=== PATIENT | male | born 2000 | race American Indian/Alaskan Native ===

== ENCOUNTER 2021-11-12 12:18 | Emergency (ER) | payer OTHER ==
[2021-11-12 12:47] VITALS: BP 126/81
[2021-11-12] MEDS ORDERED: MORPHINE 4 MG/1 ML INJ IV ONE (14:38)
[2021-11-12] MEDS ORDERED: SODIUM CHLORIDE 0.9% 1000 ML 1,000 ML IV ONE (14:38)
[2021-11-12] MEDS ORDERED: ONDANSETRON 4 MG/2 ML INJ IV ONE (14:38)
--- NOTE | 2021-11-12 14:41 | Emergency Department Report ---
ED Abdominal Pain HPI - General Chief Complaint: Abdominal Pain Stated Complaint: STOMACH PAIN Time Seen by Provider: 11/12/21 13:38 Source: patient Mode of arrival: Ambulatory Limitations: No Limitations - History of Present Illness Initial Comments: 21-year-old male with no significant past medical history reports to the ER with complaints of lower abdominal pain in his umbilicus area for about 2 days with nausea and vomiting with diarrhea and decrease in appetite. Patient reports he is able to drink small amounts of fluids however he is unable to eat without vomiting. Patient reports his pain is 8 out of 10. Reports taking nothing for his pain level. Patient denies any prior abdominal surgeries. Patient reports no suspicious food intake and no exposure to sick contacts and reports no one else in his household or friends with similar symptoms. Patient denies no other acute symptoms at this time. Severity scale (0 -10): 9 - Related Data Previous Rx's Medication Instructions Recorded Last Taken Type Acetaminophen/Codeine [Tylenol 1 tab PO Q6H PRN 2 Days #8 tab 11/12/21 Unknown Rx /Codeine # 3 tab] Ondansetron [Zofran Odt] 4 mg PO Q12H PRN 3 Days #6 11/12/21 Unknown Rx tab.rapdis Allergies Allergy/AdvReac Type Severity Reaction Status Date / Time No Known Allergies Allergy Unverified 11/12/21 12:47 ED Review of Systems ROS: Stated complaint: STOMACH PAIN Other details as noted in HPI Comment: All other systems reviewed and negative Gastrointestinal: abdominal pain, nausea, vomiting, diarrhea ED Past Medical Hx - Past Medical History Previous Medical History?: No - Medications Home Medications: Home Medications Medication Instructions Recorded Confirmed Last Taken Type Acetaminophen/Codeine [Tylenol 1 tab PO Q6H PRN 2 Days #8 tab 11/12/21 Unknown Rx /Codeine # 3 tab] Ondansetron [Zofran Odt] 4 mg PO Q12H PRN 3 Days #6 11/12/21 Unknown Rx tab.rapdis ED Physical Exam - General Limitations: No Limitations General appearance: alert, in no apparent distress - Head Head exam: Present: atraumatic, normocephalic - Eye Eye exam: Present: normal appearance - ENT ENT exam: Present: mucous membranes moist - Neck Neck exam: Present: normal inspection - Respiratory Respiratory exam: Present: normal lung sounds bilaterally. Absent: respiratory distress - Cardiovascular Cardiovascular Exam: Present: regular rate, normal rhythm. Absent: systolic murmur, diastolic murmur, rubs, gallop - GI/Abdominal GI/Abdominal exam: Present: soft, tenderness, guarding, normal bowel sounds. Absent: distended, rebound - Rectal Rectal exam: Present: deferred - Extremities Exam Extremities exam: Present: normal inspection - Back Exam Back exam: Present: normal inspection - Neurological Exam Neurological exam: Present: alert, oriented X3 - Psychiatric Psychiatric exam: Present: normal affect, normal mood - Skin Skin exam: Present: warm, dry, intact, normal color. Absent: rash ED Course Vital Signs 11/12/21 11/12/21 12:46 15:10 Temperature 98.6 F Pulse Rate 89 Respiratory 18 16 Rate Blood Pressure 126/81 [Left] O2 Sat by Pulse 96 Oximetry ED Medical Decision Making - Lab Data Result diagrams: 11/12/21 13:49 11/12/21 13:49 - Radiology Data [facility] [address] [place] [address] Cat Scan Report Signed Patient: MALIK VYAS MR#: [id number] : 2000 Acct:[id number] Age/Sex: 21 / M ADM Date: 11/12/21 Loc: ED Attending Dr: Ordering Physician: GAYE BARRERA NP Date of Service: 11/12/21 Procedure(s): CT abdomen pelvis w con Accession Number(s): [id number] cc: GAYE BARRERA NP CT ABDOMEN AND PELVIS WITH CONTRAST INDICATION / CLINICAL INFORMATION: lower abdominal pain 100ml of [id number]. TECHNIQUE: Axial CT images were obtained through the abdomen and pelvis after 100 cc of Omnipaque 350 IV contrast. Sagittal and coronal reformatted images. All CT scans at this location are performed using CT dose reduction for ALARA by means of automated exposure control. COMPARISON: None available. FINDINGS: LOWER CHEST: No significant abnormality. LIVER: No significant abnormality. GALLBLADDER: No significant abnormality. BILE DUCTS: No significant abnormality. PANCREAS: No significant abnormality. SPLEEN: No significant abnormality. ADRENALS: No significant abnormality. RIGHT KIDNEY and URETER: No significant abnormality. LEFT KIDNEY and URETER: No significant abnormality. STOMACH and SMALL BOWEL: No significant abnormality. COLON: There is mild circumferential thickening of the transverse and descending colon consistent with a nonspecific colitis. No evidence for obstruction or obvious mass. No pneumatosis. APPENDIX: No significant abnormality. PERITONEUM: No free fluid. No free air. No fluid collection. LYMPH NODES: No significant adenopathy. AORTA and ARTERIES: No significant abnormality. IVC and VEINS: No significant abnormality. URINARY BLADDER: No significant abnormality. REPRODUCTIVE ORGANS: No significant abnormality. ADDITIONAL FINDINGS: None. SKELETAL SYSTEM: No significant abnormality. IMPRESSION: Findings consistent with a nonspecific colitis. Signer Name: Pepe Flores Jr, MD Signed: 11/12/2021 4:13 PM Workstation Name: [id number] Transcribed By: TTR Dictated By: PEPE FLORES JR, MD Electronically Authenticated By: PEPE FLORES JR, MD Signed Date/Time: 11/12/21 161 DD/ 1606 TD/TT: - Medical Decision Making 21-year-old male with no significant past medical history reports to the ER with complaints of lower abdominal pain in his umbilicus area for about 2 days with nausea and vomiting with diarrhea and decrease in appetite. On physical exampatient does have lower abdominal tenderness umbilicus and right lower quadrant greater than tenderness to left lower quadrant. No acute abdominal signs noted. No guarding, no rebound. No acute findings noted in clinical labs. CT with contrast of abdomen and pelvisrule out appendicitis. Findings are consistent with colitis based on CT report. See CT report for more details. Patient reports feeling better after receiving nausea medications IV pain medicine and fluids. Patient informed of his CT results and lab results. Patient agrees with plan of care and verbalized understanding. Patient informed that if he is to get worse and not feel better to report back to the ER. No further work-up is needed at this time. Vital Signs 11/12/21 11/12/21 12:46 15:10 Temperature 98.6 F Pulse Rate 89 Respiratory 18 16 Rate Blood Pressure 126/81 [Left] O2 Sat by Pulse 96 Oximetry Lab Results 11/12/21 11/12/21 Range/Units 13:49 13:49 WBC 7.7 (4.5-11.0) K/mm3 RBC 5.48 H (3.65-5.03) M/mm3 Hgb 14.9 (11.8-15.2) gm/dl Hct 45.6 (35.5-45.6) % MCV 83 L (84-94) fl MCH 27 L (28-32) pg MCHC 33 (32-34) % RDW 13.6 (13.2-15.2) % Plt Count 208 (140-440) K/mm3 Sodium 137 (137-145) mmol/L Potassium 4.1 (3.6-5.0) mmol/L Chloride 101.4 (98-107) mmol/L Carbon Dioxide 24 (22-30) mmol/L Anion Gap 16 mmol/L BUN 12 (9-20) mg/dL Creatinine 0.7 L (0.8-1.3) mg/dL Estimated GFR > 60 ml/min BUN/Creatinine Ratio 17 % Glucose 107 H (75-100) mg/dL Calcium 9.6 (8.4-10.2) mg/dL Total Bilirubin 0.70 (0.1-1.2) mg/dL AST 24 (5-40) units/L ALT 21 (7-56) units/L Alkaline Phosphatase 53 (35-129) units/L Total Protein 9.3 H (6.3-8.2) g/dL Albumin 4.5 (3.9-5) g/dL Albumin/Globulin Ratio 0.9 % Lipase 22 (13-60) units/L Critical care attestation.: If time is entered above; I have spent that time in minutes in the direct care of this critically ill patient, excluding procedure time. ED Disposition Clinical Impression: Colitis Disposition: 01 HOME / SELF CARE / HOMELESS Is pt being admited?: No Condition: Stable Instructions: Viral Gastroenteritis, Adult, Food Choices to Help Relieve Diarrhea, Adult Prescriptions: Acetaminophen/Codeine [Tylenol /Codeine # 3 tab] 1 tab PO Q6H PRN 2 Days #8 tab PRN Reason: Pain , Severe (7-10) Ondansetron [Zofran Odt] 4 mg PO Q12H PRN 3 Days #6 tab.rapdis PRN Reason: Nausea And Vomiting Referrals: PRIMARY CARE,MD [Primary Care Provider] - 3-5 Days
[2021-11-12 14:46] LABS: Hematocrit 45.6 % (35.5-45.6); Hemoglobin 14.9 gm/dl (11.8-15.2); Mean Corpuscular HGB Conc 33 % (32-34); Mean Corpuscular Volume 83 fl (84-94); Platelet Count 208 K/mm3 (140-440); Red Blood Count 5.48 M/mm3 (3.65-5.03); Red Cell Distribution Width 13.6 % (13.2-15.2)
[2021-11-12 14:59] LABS: Alanine Aminotransferase 21 units/L (7-56); Albumin 4.5 g/dL (3.9-5); Blood Urea Nitrogen 12 mg/dL (9-20); Calcium 9.6 mg/dL (8.4-10.2); Hemolysis Index 12
[2021-11-12 15:12] LABS: BUN/Creatinine Ratio 17
--- NOTE | 2021-11-12 16:17 | Cat Scan Report ---
CT ABDOMEN AND PELVIS WITH CONTRAST INDICATION / CLINICAL INFORMATION: lower abdominal pain 100ml of [id number]. TECHNIQUE: Axial CT images were obtained through the abdomen and pelvis after 100 cc of Omnipaque 350 IV contras t. Sagittal and coronal reformatted images. All CT scans at this location are performed using CT dose reduction for ALARA by means of automated exposure control. COMPARISON: None available. FINDINGS: LOWER CHEST: No significant abnormality. LIVER: No significant abnormality. GALLBLADDER: No significant abnormality. BILE DUCTS: No significant abnormality. PANCREAS: No significant abnormality. SPLEEN: No significant abnormality. ADRENALS: No significant abnormality. RIGHT KIDNEY and URETER: No significant abnormality. LEFT KIDNEY and URETER: No significant abnormality. STOMACH and SMALL BOWEL: No significant abnormality. COLON: There is mild circumferential thickening of the transverse and descending colon consistent wit h a nonspecific colitis. No evidence for obstruction or obvious mass. No pneumatosis. APPENDIX: No significant abnormality. PERITONEUM: No free fluid. No free air. No fluid collection. LYMPH NODES: No significant adenopathy. AORTA and ARTERIES: No significant abnormality. IVC and VEINS: No significant abnormality. URINARY BLADDER: No significant abnormality. REPRODUCTIVE ORGANS: No significant abnormality. ADDITIONAL FINDINGS: None. SKELETAL SYSTEM: No significant abnormality. IMPRESSION: Findings consistent with a nonspecific colitis. Signer Name: Pepe Hill Jr, MD Signed: 11/12/2021 4:13 PM Workstation Name: [id number]
== END 2021-11-12 17:48 | disposition home or self-care (01) ==
LOC: ED 12:18
DX: K52.9 Noninfective gastroenteritis and colitis, unspecified (principal)
CPT/HCPCS: 36415; 74177; 80053; 83690; 85027; 96361; 96374; 96375; 99284; J2270; J2405; J7030; Q9967